=== PATIENT | female | born 1995 | race Caucasian/White ===

== ENCOUNTER 2023-11-14 18:00 | Emergency (ER) | payer OTHER ==
--- NOTE | 2023-11-14 18:16 | ERPHSYRPT ---
- History of Present Illness Time Seen by Provider: 11/14/23 19:04 Historian: patient Exam Limitations: no limitations Physician History: Patient is a 28-year-old female presents emergency department for evaluation of chest pain rated 4 out of 10. Patient observed her heart rate to be about 114. 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. Patient became concerned and came to our ED for evaluation. No associated nausea vomiting diaphoresis. Symptoms are mild to moderate in intensity. No specific worsening or improving factors. Patient voices no other complaints or concerns at this time. Portions of this note were created with voice recognition technology. There may be grammatical, spelling, punctuation or sound alike errors Timing/Duration: today Activities at Onset: activity Quality: aching Location: substernal Chest Pain Radiation: no radiation Severity of Pain-Max: moderate Severity of Pain-Current: mild Modifying Factors: Improves With: nothing Associated Symptoms: denies symptoms Prior Chest Pain/Cardiac Workup: no prior chest pain Nitro Today/Relief: no nitro taken today Aspirin Treatment Today: no aspirin today Allergies/Adverse Reactions: No Known Drug Allergies Allergy (Unverified 11/14/23 18:01) Home Medications: ARIPiprazole [Aripiprazole] 5 mg PO DAILY 11/14/23 [History] Albuterol Sulfate [Albuterol Sulfate Hfa] 1 puff IH Q4H PRN PRN 11/14/23 [ History] Fluticasone Propion/Salmeterol [[place] 250-50 Inhub] 1 puff IH BID 11/14/23 [History] Levothyroxine Sodium 88 mcg PO DAILY 11/14/23 [History] Montelukast Sodium 10 mg [Singulair 10 MG] 10 mg PO QPM 11/14/23 [History] Venlafaxine HCl ER 75 mg [Effexor XR 75 MG] 150 mg PO DAILY 11/14/23 [History] - Review of Systems Constitutional: No Symptoms, No Fever, No Chills Eyes: No Symptoms Ears, Nose, & Throat: No Symptoms Respiratory: No Symptoms, No Cough, No Dyspnea Cardiac: No Symptoms, No Chest Pain, No Edema, No Syncope Abdominal/Gastrointestinal: No Symptoms, No Abdominal Pain, No Nausea, No Vomiting, No Diarrhea Genitourinary Symptoms: No Symptoms, No Dysuria Musculoskeletal: No Symptoms, No Back Pain, No Neck Pain Skin: No Symptoms, No Rash Neurological: No Symptoms, No Dizziness, No Focal Weakness, No Sensory Changes Psychological: No Symptoms Endocrine: No Symptoms Hematologic/Lymphatic: No Symptoms Immunological/Allergic: No Symptoms All Other Systems: Reviewed and Negative - Nursing Vital Signs Nursing Vital Signs: Initial Vital Signs Temperature 97.8 F 11/14/23 18:00 Pulse Rate 109 H 11/14/23 18:00 Respiratory Rate 22 11/14/23 18:00 Blood Pressure 130/92 11/14/23 18:00 O2 Sat by Pulse Oximetry 99 11/14/23 18:00 Pain Scale Pain Intensity 0 - Physical Exam General Appearance: no apparent distress, alert Eye Exam: PERRL/EOMI, eyes nml inspection Ears, Nose, Throat Exam: normal ENT inspection, moist mucous membranes Neck Exam: normal inspection, non-tender, supple, full range of motion Respiratory Exam: normal breath sounds, lungs clear, No respiratory distress Cardiovascular Exam: regular rate/rhythm, normal heart sounds Gastrointestinal/Abdomen Exam: soft, No tenderness, No mass Back Exam: normal inspection, No CVA tenderness, No vertebral tenderness Extremity Exam: normal inspection, normal range of motion Neurologic Exam: alert, oriented x 3, cooperative, normal mood/affect, sensation nml, No motor deficits Skin Exam: normal color, warm, dry Lymphatic Exam: No adenopathy SpO2 Interpretation: normal SpO2: 99 O2 Delivery: Room Air - Course Nursing assessment & vital signs reviewed: Yes EKG Interpreted by Me: RATE ([id number]), Sinus Rhythm, NORMAL AXIS, NORMAL INTERVALS - Radiology Exams Chest X-ray Interpretation: Interpreted by me (No acute findings, osteopenia) Ordered Tests: Active Orders 24 hr Category Date Time 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 Care 11/14/23 18:13 Active EKG-ER Only STAT Care 11/14/23 18:13 Active IV Insertion STAT Care 11/14/23 18:13 Active Pulse Oximetry (ED) STAT Care 11/14/23 18:13 Active CHEST 1 VIEW (PORTABLE) Stat Exams 11/14/23 20:18 Taken CBC W DIFF Stat Lab 11/14/23 19:15 Completed CMP Stat Lab 11/14/23 19:15 Completed D-DIMER QUANTITATIVE Stat Lab 11/14/23 19:25 Completed TROPONIN Q4H Lab 11/14/23 19:15 Completed TROPONIN Q4H Lab 11/14/23 21:30 Completed TROPONIN Q4H Lab 11/15/23 02:15 Ordered UA W/RFX UR CULTURE Stat Lab 11/14/23 20:17 Completed Respiratory Therapy Assessment DAILY RT 11/14/23 22:24 Active Medication Summary Generic Name Dose Route Start Last Admin Trade Name Freq PRN Reason Stop Dose Admin Sodium Chloride 1,000 mls @ 999 mls/hr 11/14/23 22:54 11/14/23 23:18 Sodium Chloride 0.9% 1000 Ml IV 11/14/23 23:54 999 mls/hr .Q1H1M STA Administration Discontinued Medications Generic Name Dose Route Start Last Admin Trade Name Freq PRN Reason Stop Dose Admin Albuterol/Ipratropium 3 ml 11/14/23 22:11 11/14/23 22:22 Ipratropium/Albuterol Sulfate 3 Ml Ampul.Neb IH 11/14/23 22:12 3 ml STAT ONE Administration Albuterol/Ipratropium Confirm 11/14/23 22:18 Ipratropium/Albuterol Sulfate 3 Ml Ampul.Neb Administered 11/14/23 22:19 Dose 3 ml IH .STK-MED ONE Sodium Chloride 1,000 mls @ 999 mls/hr 11/14/23 22:09 11/14/23 23:19 Sodium Chloride 0.9% 1000 Ml IV 11/14/23 23:09 Infused .Q1H1M STA Infusion Sodium Chloride Confirm 11/14/23 22:08 Sodium Chloride 0.9% 1000 Ml Administered 11/14/23 22:09 Dose 1,000 mls @ ud .ROUTE .STK-MED ONE Sodium Chloride Confirm 11/14/23 23:17 Sodium Chloride 0.9% 1000 Ml Administered 11/14/23 23:18 Dose 1,000 mls @ ud .ROUTE .STK-MED ONE Lab/Rad Data: Laboratory Result Diagrams 11/14/23 19:15 11/14/23 19:15 Laboratory Results 11/14/23 11/14/23 11/14/23 Range/Units 21:30 21:30 20:17 WBC (4.0-10.5) x10^3/uL RBC (4.1-5.4) x10^6/uL Hgb (12.0-16.0) g/dL Hct (35-47) % MCV (78-100) fL MCH (26-32) pg MCHC (32-36) g/dL RDW (11.5-14.0) % Plt Count (150-450) x10^3/uL MPV (7.5-11.0) fL Gran % (36.0-66.0) % Immature Gran % (Auto) (0.00-0.4) % Nucleat RBC Rel Count (0.00-0.1) % Eos # (Auto) (0-0.5) x10^3/uL Immature Gran # (Auto) (0.00-0.03) x10^3u/L Absolute Lymphs (auto) (1.0-4.6) x10^3/uL Absolute Monos (auto) (0.0-1.3) x10^3/uL Absolute Nucleated RBC (0.00-0.01) x10^3u/L Lymphocytes % (24.0-44.0) % Monocytes % (0.0-12.0) % Eosinophils % (0.00-5.0) % Basophils % (0.0-0.4) % Absolute Granulocytes (1.4-6.9) x10^3/uL Basophils # (0-0.4) x10^3/uL D-Dimer (0.0-0.50) mg/L Sodium (137-145) mmol/L Potassium (3.5-5.1) mmol/L Chloride (98-107) mmol/L Carbon Dioxide (22-30) mmol/L Anion Gap (5-15) MEQ/L BUN (7-17) mg/dL Creatinine (0.52-1.04) mg/dL Estimated GFR ML/MIN Glucose (74-106) mg/dL Calcium (8.4-10.2) mg/dL Total Bilirubin (0.2-1.3) mg/dL AST (14-36) U/L ALT (0-35) U/L Alkaline Phosphatase (38-126) U/L Troponin I < 0.012 (0.000-0.034) ng/mL Serum Total Protein (6.3-8.2) g/dL Albumin (3.5-5.0) g/dL Urine Color Yellow (Yellow) Urine Appearance Clear (Clear) Urine pH 7.5 (4.6-8.0) Ur Specific [place] 1.010 (1.005-1.030) Urine Protein Negative (Negative) Urine Glucose (UA) Negative (Negative) mg/dL Urine Ketones Negative (Negative) Urine Blood Negative (Negative) Urine Nitrite Negative (Negative) Urine Bilirubin Negative (Negative) Urine Urobilinogen 0.2 (0.2) mg/dL Ur Leukocyte Esterase Negative (Negative) U Hyaline Cast (Auto) NONE SEEN (0-2) /LPF Urine Microscopic RBC 0-2 (0-5) /HPF Urine Microscopic WBC 0-2 (0-5) /HPF Ur Epithelial Cells None Seen (None Seen) /HPF Urine Bacteria None Seen (None Seen) /HPF Urine Culture Reflexed NO (NO) Influenza Type A Ag NEGATIVE (NEGATIVE) Influenza Type B Ag NEGATIVE (NEGATIVE) RSV (PCR) NEGATIVE (NEGATIVE) SARS-CoV-2 (PCR) NEGATIVE (NEGATIVE) 11/14/23 11/14/23 11/14/23 Range/Units 19:25 19:15 19:15 WBC (4.0-10.5) x10^3/uL RBC (4.1-5.4) x10^6/uL Hgb (12.0-16.0) g/dL Hct (35-47) % MCV (78-100) fL MCH (26-32) pg MCHC (32-36) g/dL RDW (11.5-14.0) % Plt Count (150-450) x10^3/uL MPV (7.5-11.0) fL Gran % (36.0-66.0) % Immature Gran % (Auto) (0.00-0.4) % Nucleat RBC Rel Count (0.00-0.1) % Eos # (Auto) (0-0.5) x10^3/uL Immature Gran # (Auto) (0.00-0.03) x10^3u/L Absolute Lymphs (auto) (1.0-4.6) x10^3/uL Absolute Monos (auto) (0.0-1.3) x10^3/uL Absolute Nucleated RBC (0.00-0.01) x10^3u/L Lymphocytes % (24.0-44.0) % Monocytes % (0.0-12.0) % Eosinophils % (0.00-5.0) % Basophils % (0.0-0.4) % Absolute Granulocytes (1.4-6.9) x10^3/uL Basophils # (0-0.4) x10^3/uL D-Dimer 0.28 (0.0-0.50) mg/L Sodium 137 (137-145) mmol/L Potassium 4.0 (3.5-5.1) mmol/L Chloride 103 (98-107) mmol/L Carbon Dioxide 27 (22-30) mmol/L Anion Gap 10.4 (5-15) MEQ/L BUN 13 (7-17) mg/dL Creatinine 0.58 (0.52-1.04) mg/dL Estimated GFR 125.6 ML/MIN Glucose 90 (74-106) mg/dL Calcium 9.8 (8.4-10.2) mg/dL Total Bilirubin 0.40 (0.2-1.3) mg/dL AST 32 (14-36) U/L ALT 23 (0-35) U/L Alkaline Phosphatase 76 (38-126) U/L Troponin I < 0.012 (0.000-0.034) ng/mL Serum Total Protein 7.9 (6.3-8.2) g/dL Albumin 4.5 (3.5-5.0) g/dL Urine Color (Yellow) Urine Appearance (Clear) Urine pH (4.6-8.0) Ur Specific [place] (1.005-1.030) Urine Protein (Negative) Urine Glucose (UA) (Negative) mg/dL Urine Ketones (Negative) Urine Blood (Negative) Urine Nitrite (Negative) Urine Bilirubin (Negative) Urine Urobilinogen (0.2) mg/dL Ur Leukocyte Esterase (Negative) U Hyaline Cast (Auto) (0-2) /LPF Urine Microscopic RBC (0-5) /HPF Urine Microscopic WBC (0-5) /HPF Ur Epithelial Cells (None Seen) /HPF Urine Bacteria (None Seen) /HPF Urine Culture Reflexed (NO) Influenza Type A Ag (NEGATIVE) Influenza Type B Ag (NEGATIVE) RSV (PCR) (NEGATIVE) SARS-CoV-2 (PCR) (NEGATIVE) 11/14/23 Range/Units 19:15 WBC 11.8 H (4.0-10.5) x10^3/uL RBC 5.23 (4.1-5.4) x10^6/uL Hgb 14.1 (12.0-16.0) g/dL Hct 44.6 (35-47) % MCV 85.3 (78-100) fL MCH 27.0 (26-32) pg MCHC 31.6 L (32-36) g/dL RDW 12.6 (11.5-14.0) % Plt Count 332 (150-450) x10^3/uL MPV 9.8 (7.5-11.0) fL Gran % 60.1 (36.0-66.0) % Immature Gran % (Auto) 0.3 (0.00-0.4) % Nucleat RBC Rel Count 0.0 (0.00-0.1) % Eos # (Auto) 0.01 (0-0.5) x10^3/uL Immature Gran # (Auto) 0.03 (0.00-0.03) x10^3u/L Absolute Lymphs (auto) 3.90 (1.0-4.6) x10^3/uL Absolute Monos (auto) 0.75 (0.0-1.3) x10^3/uL Absolute Nucleated RBC 0.00 (0.00-0.01) x10^3u/L Lymphocytes % 33.1 (24.0-44.0) % Monocytes % 6.4 (0.0-12.0) % Eosinophils % 0.1 (0.00-5.0) % Basophils % 0.0 (0.0-0.4) % Absolute Granulocytes 7.08 H (1.4-6.9) x10^3/uL Basophils # 0 (0-0.4) x10^3/uL D-Dimer (0.0-0.50) mg/L Sodium (137-145) mmol/L Potassium (3.5-5.1) mmol/L Chloride (98-107) mmol/L Carbon Dioxide (22-30) mmol/L Anion Gap (5-15) MEQ/L BUN (7-17) mg/dL Creatinine (0.52-1.04) mg/dL Estimated GFR ML/MIN Glucose (74-106) mg/dL Calcium (8.4-10.2) mg/dL Total Bilirubin (0.2-1.3) mg/dL AST (14-36) U/L ALT (0-35) U/L Alkaline Phosphatase (38-126) U/L Troponin I (0.000-0.034) ng/mL Serum Total Protein (6.3-8.2) g/dL Albumin (3.5-5.0) g/dL Urine Color (Yellow) Urine Appearance (Clear) Urine pH (4.6-8.0) Ur Specific [place] (1.005-1.030) Urine Protein (Negative) Urine Glucose (UA) (Negative) mg/dL Urine Ketones (Negative) Urine Blood (Negative) Urine Nitrite (Negative) Urine Bilirubin (Negative) Urine Urobilinogen (0.2) mg/dL Ur Leukocyte Esterase (Negative) U Hyaline Cast (Auto) (0-2) /LPF Urine Microscopic RBC (0-5) /HPF Urine Microscopic WBC (0-5) /HPF Ur Epithelial Cells (None Seen) /HPF Urine Bacteria (None Seen) /HPF Urine Culture Reflexed (NO) Influenza Type A Ag (NEGATIVE) Influenza Type B Ag (NEGATIVE) RSV (PCR) (NEGATIVE) SARS-CoV-2 (PCR) (NEGATIVE) - Progress Progress: improved Air Movement: good Progress Note: Patient's heart score is 2 11/14/23 23:35 Patient is a 28-year-old female presents to our ED for evaluation of chest pain and shortness of breath and tachycardia. Chest x-ray essentially sinus tachycardia. CBC slight leukocytosis of 11.8 otherwise unremarkable. CMP negative. Troponin negative x 2. COVID test negative. RSV influenza negative. D-dimer negative. Patient received 1 albuterol nebulizer. Shortness of breath resolved. Patient received IV fluids tachycardia resolved. Patient is resting comfortably. She has no complaints. Will discharge home. Patient has a follow-up appointment with her primary care doctor this week. She voices no other complaints or concerns at this time. Portions of this note were created with voice recognition technology. There may be grammatical, spelling, punctuation or sound alike errors Complexity of problem addressed is moderate acute complicated No critical care time Complexity of data reviewed and analyzed is moderate. Test ordered test reviewed. Dr. Peralta independent reviewed the EKG and chest x-ray. Risk of complication and or risk of morbidity/mortality of patient management is moderate Vital stable. Time spent to discharge patient is approximately 20 minutes. Plan of care established for shared decision making. No social determinants of health present impede follow-up. 11/14/23 23:36 Blood Culture(s) Obtained: No Antibiotics given: No Counseled pt/family regarding: lab results, diagnosis, need for follow-up, rad results - Departure Departure Disposition: Home Clinical Impression: Chest pain, Shortness of breath, Tachycardia Condition: Stable Critical Care Time: No Referrals: LILIANA MOREIRA MD [Primary Care Provider] - Follow up/PCP as directed Additional Instructions: Discharge/Care Plan ALENA STOREY was seen on 11/14/23 in the Emergency Room. The patient was couns eled regarding Diagnosis,Lab results, Imaging studies, need for follow up and when to return to the Emergency Room. Prescriptions given: Discharge Note I have spoken with the patient and/or caregivers. I have explained the patient's condition, diagnosis and treatment plan based on the information available to me at this time. I have answered the patient's and/or caregiver's questions and addressed any concerns. The patient and/or caregivers have as good understanding of the patient's diagnosis, condition and treatment plan as can be expected at this point. The vital signs have been stable. The patient's condition is stable and appropriate for discharge from the emergency department. The patient will pursue further outpatient evaluation with the primary care physician or other designated or consulting physician as outlined in the discharge instructions. The patient and/or caregivers are agreeable to this plan of care and follow-up instructions have been explained in detail. The patient and/or caregivers have received these instruction. The patient/and or caregivers are aware that any significant change in condition or worsening of symptoms should prompt an immediate return to this or the closest emergency department or call 911.
[2023-11-14 18:21] VITALS: TEMP 97.8
[2023-11-14 19:17] LABS: Absolute Neutrophil Ct (ANC) 7.08 x10^3/uL (1.4-6.9); Basophil (Absolute #) 0 x10^3/uL (0-0.4); Eosinophil % 0.1 % (0.00-5.0); Eosinophil (Absolute #) 0.01 x10^3/uL (0-0.5); Hematocrit 44.6 % (35-47); Hemoglobin 14.1 g/dL (12.0-16.0); IMMATURE GRAN # 0.03 x10^3u/L (0.00-0.03); IMMATURE GRAN % 0.3 % (0.00-0.4); Lymphocytes % 33.1 % (24.0-44.0); Mean Cell Volume 85.3 fL (78-100); Mean Corpuscular Hgb Concent. 31.6 g/dL (32-36); Mean Platelet Volume 9.8 fL (7.5-11.0); Monocyte (Absolute #) 0.75 x10^3/uL (0.0-1.3); Monocytes % 6.4 % (0.0-12.0); Neutrophil % 60.1 % (36.0-66.0); Platelet Count 332 x10^3/uL (150-450); Red Blood Count 5.23 x10^6/uL (4.1-5.4); Red Cell Distribution Width 12.6 % (11.5-14.0); White Blood Count 11.8 x10^3/uL (4.0-10.5)
[2023-11-14 19:52] LABS: ALBUMIN 4.5 g/dL (3.5-5.0); ANION GAP 10.4 MEQ/L (5-15); BILIRUBIN,TOTAL 0.4 mg/dL (0.2-1.3); Calcium 9.8 mg/dL (8.4-10.2); Creatinine 1 0.58 mg/dL (0.52-1.04); EST GLOMERULAR FILTRATION RATE 125.6 ML/MIN; Total Protein 7.9 g/dL (6.3-8.2)
[2023-11-14 20:42] LABS: Appearance Clear (Clear); Bacteria None Seen /HPF (None Seen); Bilirubin Negative (Negative); Blood Negative (Negative); Epithelial Cells None Seen /HPF (None Seen); Glucose, Urine Negative (Negative); Hyaline Casts NONE SEEN /LPF (0-2); Ketones Negative (Negative); Leukocyte Esterase Negative (Negative); Nitrite Negative (Negative); Ph 7.5 (4.6-8.0); Protein,Urine Dip Negative (Negative); RBC 0-2 /HPF (0-5); Urobilinogen 0.2 mg/dL (0.2); WBC 0-2 /HPF (0-5)
[2023-11-14 20:43] LABS: ADD URINE CULTURE? NO (NO)
[2023-11-14] MEDS ORDERED: Sodium Chloride 0.9% 1000 ML 1,000 ML ONE ×2 (22:08→23:17)
[2023-11-14] MEDS ORDERED: Sodium Chloride 0.9% 1000 ML 1,000 ML IV STA ×2 (22:09→22:54)
[2023-11-14] MEDS ORDERED: DUONEB 0.5-3 MG/3 ml Neb IH ONE ×2 (22:11→22:18)
[2023-11-14 22:15] LABS: INFLUENZA A NEGATIVE (NEGATIVE); INFLUENZA B NEGATIVE (NEGATIVE); RESPIRATORY SYNCTIAL VIRUS NEGATIVE (NEGATIVE); SARS-CoV-2 Xpert Express NEGATIVE (NEGATIVE)
[2023-11-14 23:29] VITALS: O2SAT 99
[2023-11-15 00:08] VITALS: BP 128/82; PULSE 96; RESP 18
--- NOTE | 2023-11-15 08:42 | XRAY ---
Indication: Chest pain. Comparison: None Portable chest demonstrates right middle lobe infiltrate versus atelectasis. Remaining heart, lungs, and bony thorax normal. Comment: Right lung finding not reported by interpreting ER clinician. Telephone report given Dr. Thomas at 0836 hrs. on November 15, 2023.
== END 2023-11-15 00:08 | disposition home or self-care (01) ==
LOC: ED 18:00
DX: R07.9 Chest pain, unspecified (principal); R06.02 Shortness of breath; R00.0 Tachycardia, unspecified; R91.8 Other nonspecific abnormal finding of lung field; Z79.899 Other long term (current) drug therapy
CPT/HCPCS: 0241U; 36000; 36415; 71045; 80053; 81001; 84484; 85025; 85379; 93005; 93041; 94640; 94760; 99284; A9270-GY

== ENCOUNTER 2024-01-08 01:03 | Emergency (ER) | payer OTHER ==
[2024-01-08 01:05] VITALS: TEMP 97.6
[2024-01-08] MEDS ORDERED: Zofran 4 MG/2 ML VIAL ONE (01:26)
[2024-01-08] MEDS ORDERED: Ativan 2 MG/1 ML VIAL ONE (01:30)
[2024-01-08] MEDS ORDERED: SUBLIMAZE 100 MCG/2 ML ONE (01:30)
[2024-01-08] MEDS: Zofran 4 MG/2 ML VIAL IV ONE (01:42)
[2024-01-08] MEDS: Ativan 2 MG/1 ML VIAL IV PRN (01:44)
[2024-01-08] MEDS: SUBLIMAZE 100 MCG/2 ML IV ONE (01:45)
[2024-01-08] MEDS ORDERED: Ketamine HCl 50 MG/ML ONE (02:08)
--- NOTE | 2024-01-08 02:13 | ERPHSYRPT ---
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 Pt was emptying urine from a hat in the bathroom and she turned but her knee did not, resulting in pt falling on the floor and in severe pain. [employer] shop supervisor called us in ER to come evaluate pt. Dr. Gomez and myself responded to find pt laying on the floor, unable to move rt knee/leg and in severe pain. Pt states, "my knee popped out of place and states, I've had my knee do this before". Rt knee is swollen and knee cap appears to be sitting to the lateral side of her leg. Physician History: 28yo f presents to ED via wheelchair from [facility]. 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 Pt denies hitting her head during fall, denies LOC. Pt states she felt her kneecap on the outside of her leg, was unable to bare weight, unable to extend the knee. Pt reports good sensation in her RLE diffusely. Method of Injury: other (bent knee, felt kneecap pop out laterally) Occurred: just prior to arrival Quality: constant Severity of Pain-Max: severe Severity of Pain-Current: severe Lower Extremities Pain: knee: right Modifying Factors: Improves With: movement Associated Symptoms: unable to bear weight, popping sensation Body Map: 1 - right knee, laterally dislocated knee cap Allergies/Adverse Reactions: No Known Drug Allergies Allergy (Verified 01/08/24 01:16) Home Medications: ARIPiprazole [Aripiprazole] 5 mg PO DAILY 11/14/23 [History] Albuterol Sulfate [Albuterol Sulfate Hfa] 1 puff IH Q4H PRN PRN 11/14/23 [History] Fluticasone Propion/Salmeterol [Wixela 250-50 Inhub] 1 puff IH BID 11/14/23 [History] Levothyroxine Sodium 88 mcg PO DAILY 11/14/23 [History] Montelukast Sodium 10 mg [Singulair 10 MG] 10 mg PO QPM 11/14/23 [History] Venlafaxine HCl ER 75 mg [Effexor XR 75 MG] 150 mg PO DAILY 11/14/23 [History] norgestimate-ethinyl estradioL [Norg-Ee 0.18-0.215-0.25/0.025] 1 tab PO DAILY 01/08/24 [History] Hx Tetanus, Diphtheria Vaccination/Date Given: Yes Hx Influenza Vaccination/Date Given: Yes Hx Pneumococcal Vaccination/Date Given: No Immunizations Up to Date: Yes Travel Risk - International Travel Have you traveled outside of the country in past 3 weeks: No - Emerging Infectious Disease Are you exhibiting symptoms associated with any current EIDs: No - Review of Systems Constitutional: No Symptoms Respiratory: No Symptoms Cardiac: No Symptoms Musculoskeletal: Deformity (dislocated patella), Joint Pain - Past Medical History Pertinent Past Medical History: Yes Neurological History: No Pertinent History ENT History: No Pertinent History Cardiac History: No Pertinent History Respiratory History: Asthma Endocrine Medical History: Hypothyroidism Musculoskeletal History: Other GI Medical History: GERD, Hernia History: No Pertinent History Psycho-Social History: Anxiety, Depression Female Reproductive Disorders: No Pertinent History Other Medical History: rt knee dislocation - Past Surgical History Past Surgical History: Yes Musculoskeletal: Orthopedic Surgery Other Surgical History: EGD, left wrist - Female History Hx Last Menstrual Period: 12/13/23 Hx Now: No - Social History Smoking Status: Never smoker Exposure to second hand smoke: No Drug Use: none Patient Lives Alone: No - Nursing Vital Signs Nursing Vital Signs: Initial Vital Signs Temperature 97.6 F 01/08/24 01:04 Pulse Rate 102 H 01/08/24 01:04 Respiratory Rate 20 01/08/24 01:04 Blood Pressure 107/59 01/08/24 01:04 O2 Sat by Pulse Oximetry 99 01/08/24 01:04 Pain Scale Pain Intensity 0 - Physical Exam General Appearance: mild distress, alert, anxiety Cardiovascular/Respiratory Exam: chest non-tender, normal breath sounds, heart sounds normal, no respiratory distress, normal peripheral pulses, tachycardia Hips Exam: bilateral: non-tender, normal inspection, normal range of motion, no evidence of injury Knees Exam: right knee: bone tenderness (TTP over laterally dislocated patella), deformity (patella dislocated laterally), pain Ankle Exam: bilateral ankle: non-tender, normal inspection, no evidence of injury Foot Exam: bilateral foot: non-tender, normal inspection, no evidence of injury Neuro/Tendon Exam: normal sensation, normal motor functions, responds to pain, no evidence tendon injury Mental Status Exam: alert, oriented x 3, cooperative SpO2 Interpretation: normal SpO2: 98 O2 Delivery: Room Air Procedures - Procedural Sedation Indication: joint reduction (lateral dislocation of patella) Preparation: consent signed, capnographry, iv access, previous anesthia/sedation without complications, constant attendance, front desk monitor, oxygen (RA, nc in place), procedure explained, pulse oximeter Sedation Parenteral: Ketamine (50mg IV; pt received 50mcg fentanyl and 1mg ativan roughly 30min prior to ketamine, did not tolerate attempted reduction at that time) Response during procedure: moderate sedation, handled secretions adequately, maintained airway well, oxygenation stable, vital signs stable Post-Procedure Response: return to baseline mental status, vital signs stable Progress: 50mg ketamine given, pt was able to relax RLE Right knee was extended to 180 degrees, pressure was applied to lateral quadriceps musculature, medial force applied to patella w/ successful reduction to midline pt tolerated procedure well, pt was drowsy but able to be aroused pt remained vitally stable throughout procedure Respiratory therapy present during procedure, pt maintained O2 saturation well on RA imaging of right knee obtained, on my initial view of xray patella appeared midline pt resting comfortably, knee immobilizer applied to right knee Ordered Tests: Active Orders 24 hr Category Date Time Status KNEE (3 VIEWS) Stat Exams 01/08/24 01:08 Completed Medication Summary Generic Name Dose Route Start Last Admin Trade Name Freq PRN Reason Stop Dose Admin Lorazepam 1 mg 01/08/24 01:11 01/08/24 01:44 Lorazepam 2 Mg/1 Ml 2 Mg Vial IV 02/07/24 01:10 1 mg PRN PRN Administration CIWA SCORE Discontinued Medications Generic Name Dose Route Start Last Admin Trade Name Freq PRN Reason Stop Dose Admin Fentanyl Citrate 50 mcg 01/08/24 01:08 01/08/24 01:45 Fentanyl Citrate 100 Mcg/2 Ml* Vial IV 01/08/24 01:09 50 mcg STAT ONE Administration Fentanyl Citrate Confirm 01/08/24 01:30 Fentanyl Citrate 100 Mcg/2 Ml* Vial Administered 01/08/24 01:31 Dose 100 mcg .ROUTE .STK-MED ONE Ketamine HCl 50 mg 01/08/24 02:00 01/08/24 02:18 Ketamine Hcl 50 Mg/Ml IV 01/08/24 02:01 50 mg STAT ONE Administration Ketamine HCl Confirm 01/08/24 02:08 Ketamine Hcl 50 Mg/Ml Administered 01/08/24 02:09 Dose 50 mg .ROUTE .STK-MED ONE Ondansetron HCl 4 mg 01/08/24 01:12 01/08/24 01:42 Ondansetron Hcl 4 Mg/2 Ml Vial IV 01/08/24 01:13 4 mg STAT ONE Administration Ondansetron HCl Confirm 01/08/24 01:26 Ondansetron Hcl 4 Mg/2 Ml Vial Administered 01/08/24 01:27 Dose 4 mg .ROUTE .STK-MED ONE - Progress Progress: improved Progress Note: 01/08/24 02:12 attempted to give 50mcg fentanyl and 1mg ativan to attempt reduction, pt was unable to tolerate straightening leg at that time plan to attempt reduction of dislocated patella w/ additional ketamine 50mg IV 01/08/24 02:40 50mg ketamine given, pt was able to relax RLE Right knee was extended to 180 degrees, pressure was applied to lateral quadriceps musculature, medial force applied to patella w/ successful reduction to midline pt tolerated procedure well, pt was drowsy but able to be aroused pt remained vitally stable throughout procedure Respiratory therapy present during procedure, pt maintained O2 saturation well on RA imaging of right knee obtained, on my initial view of xray patella appeared midline pt resting comfortably, knee immobilizer applied to right knee will continue to monitor vitals q15min for 1-2h 01/08/24 03:02 re-evaluated pt, resting comfortably, right knee in immobilizer, currently denies pain, pedal pulse palpable, sensation intact in LE 01/08/24 03:36 knee xray showed: 1. The Insall-Salvati ratio or index is slightly above the normal lower limit, suggestive of patella mino. 2. No fracture. The Insall-Salvati ratio Interpretation: Patella baja: <0.8 Normal: 0.8-1.2 Patella mino: >1.2 discussed xray findings w/ pt, reduction successful pt monitored for > 1 hour following conscious sedation w/ ketamine - pt has remained vitally stable, at baseline level of consciousness will allow pt to ambulate on crutches w/ nursing support before dc home plan for dc home w/ right leg in knee immobilizer, pt given crutches instructed to f/u w/ [facility] this week - pt given clinic information instructed to limit weight baring as much as possible recommend ice, rest, ibuprofen for pain management Return to ED if: dislocation re-occurs, significant pain develops, sensation in right leg becomes diminished, develop chest pain/shortness of breath Counseled pt/family regarding: need for follow-up, rad results Medical Desision Making - Risk of complications Low Risk: Low risk of morbidity from additional dx testing or treatment - Departure Departure Disposition: Home Clinical Impression: Closed dislocation of right patella Qualifiers: Encounter type: initial encounter Qualified Code(s): S83.004A - Unspecified dislocation of right patella, initial encounter Condition: Stable Critical Care Time: Yes Critical Care Time(excluding separately billable procedures): Critical 30-74 mins Referrals: LILIANA MOREIRA MD [Primary Care Provider] - Follow up/PCP as directed Additional Instructions: plan for dc home w/ right leg in knee immobilizer, pt given crutches instructed to f/u w/ orthopedic walk-in clinic [facility] this week - pt given clinic information instructed to limit weight baring as much as possible recommend ice, rest, ibuprofen for pain management Return to ED if: dislocation re-occurs, significant pain develops, sensation in right leg becomes diminished, develop chest pain/shortness of breath Forms: Work/School Release Form
[2024-01-08 02:18] VITALS: O2SAT 98
[2024-01-08] MEDS: Ketamine HCl 50 MG/ML IV ONE (02:18)
[2024-01-08 03:19] VITALS: BP 96/55; PULSE 99; RESP 27
--- NOTE | 2024-01-08 03:28 | XRAY ---
CLINICAL HISTORY: dislocated patella TECHNIQUE: X-ray right knee joint is performed in AP, lateral, and oblique 3 views. COMPARISON: None. FINDINGS: Insall-Salvati ratio or index is 6.2 cm / 4.8 cm: 1.29. No acute osseous abnormality. No be joint effusion. The tibiofemoral joint appears normal. Bone density is normal. No significant soft tissue swelling. IMPRESSION: 1. The Insall-Salvati ratio or index is slightly above the normal lower limit, suggestive of patella mino. 2. No fracture. The Insall-Salvati ratio Interpretation: Patella baja: <0.8 Normal: 0.8-1.2 Patella mino: >1.2 DISCLAIMER:A subtle bone abnormality or fracture may not be readily apparent on x-rays, thus clinical correlation and further imaging including follow up CT, MRI, or follow up x-rays are advised as needed. Electronically Signed by: Selam Briggs MD. (01/08/2024 03:24:58 EDT)
== END 2024-01-08 03:50 | disposition home or self-care (01) ==
LOC: ED 01:03
DX: S83.004A Unspecified dislocation of right patella, initial encounter (principal); X50.0XXA Overexertion from strenuous movement or load, initial encounter; Y92.231 Patient bathroom in hospital as the place of occurrence of the external cause; Y99.0 Civilian activity done for income or pay; Z79.899 Other long term (current) drug therapy
CPT/HCPCS: 27562; 73562; 96374; 96375; 99284; 99291; J2060; J2405; J3010; L1830